=== PATIENT | female | born 1965 | race Asian ===

== ENCOUNTER 2023-07-02 08:29 | Emergency (ER) | payer MEDICAID ==
[~2023-07-02] VITALS: Ht 160 cm; Wt 65.3 kg
[2023-07-02 08:37] VITALS: BP 101/80; PULSE 78; RESP 18; TEMP 98.2; O2SAT 97
[2023-07-02] MEDS ORDERED: CLIN300C2 PO (09:12)
[2023-07-02 09:17] VITALS: BP 108/63; PULSE 78; RESP 18; TEMP 98.2; O2SAT 97
== END 2023-07-02 09:41 | disposition home or self-care (01) ==
LOC: MED 08:29
DX: H04.322 Acute dacryocystitis of left lacrimal passage (principal); I10 Essential (primary) hypertension
CPT/HCPCS: 99283